=== PATIENT | female | born 1995 | race Caucasian/White ===

== ENCOUNTER 2016-10-14 15:25 | Emergency (ER) | payer MEDICAID ==
[~2016-10-14] VITALS: Ht 170.2 cm; Wt 65.8 kg
[2016-10-14 15:30] VITALS: BP 120/81; PULSE 84; RESP 16; TEMP 97.4; O2SAT 100
[2016-10-14] MEDS ORDERED: ONDANSETRON HCL 4 MG/2 ML VIAL IVP ONE (15:45)
[2016-10-14] MEDS ORDERED: NACL 0.9% 1,000 ML IV ONE (15:45)
[2016-10-14 16:23] LABS: BILIRUBIN,URINE NEGATIVE (NEGATIVE); BLOOD, URINE 3+ (NEGATIVE); CLARITY/URINE CLEAR (CLEAR); COLOR,URINE YELLOW (YELLOW); GLUCOSE,URINE NEGATIVE (NEGATIVE); KETONES,URINE NEGATIVE (NEGATIVE); LEUKOCYTE ESTERASE ,URINE NEGATIVE (NEGATIVE); NITRITE, URINE NEGATIVE (NEGATIVE); PH,URINE 8.5 (5.0-8.0); PROTEIN URINE 1+ (NEGATIVE)
[2016-10-14 16:27] LABS: BASOPHILS % (AUTO) 0.2 % (0.0-2.0); EOSINOPHILS % (AUTO) 0.2 % (0.0-4.0); LYMPHOCYTES % (AUTO) 7.1 % (20.5-51.5); MEAN CORPUSCULAR HEMOGLOBIN 30 pg (27-31); MEAN CORPUSCULAR HGB CONC 34 % (32-36); MEAN CORPUSCULAR VOLUME 88 fL (79.0-98.0); MONOCYTES # (AUTO) 0.7 K/uL (0.0-1.0); MONOCYTES % (AUTO) 4.9 % (1.7-9.3); NEUTROPHILS # (AUTO) 12.5 K/uL (1.8-7.7); PLATELET COUNT (AUTO) 263 K/uL (130-430); RED BLOOD CELL COUNT(AUTO) 4.64 MIL/uL (4.2-6.2); RED CELL DISTRIBUTION WIDTH 11.9 % (9.0-15.0); WHITE BLOOD COUNT (AUTO) 14.2 K/uL (4.8-10.8)
[2016-10-14 16:36] LABS: CALCIUM 8.7 mg/dL (8.4-11.0); CREATININE 0.83 mg/dL (0.55-1.30); POTASSIUM 3.6 mmol/L (3.5-5.1)
[2016-10-14 16:37] LABS: BARBITURATE, URINE NEGATIVE (NEG <=200); BENZODIAZEPINE, URINE NEGATIVE (NEG <=150); CANNABINOID, URINE NEGATIVE (NEG <=50); COCAINE, URINE NEGATIVE (NEG <=150); METHAMPHETAMINES SCREEN,URINE NEGATIVE (NEG <=500); OPIATE, URINE NEGATIVE (NEG <=100); PHENCYCLIDINE SCREEN,URINE NEGATIVE (NEG <=25); UR TRICYCLIC ANTIDEPRESSANTS NEGATIVE (NEG <=300); URINE AMPHETAMINE NEGATIVE (NEG <=500); URINE METHADONE NEGATIVE (NEG <=200); URINE OXYCODONE SCREEN NEGATIVE (NEG <=100); URINE PROPOXYPHENE SCREEN NEGATIVE (NEG <=300)
[2016-10-14 16:41] LABS: BACTERIA,URINE FEW /HPF (None Seen); MUCUS,URINE 1+ /LPF (None Seen)
[2016-10-14 16:51] LABS: ALBUMIN 4.3 g/dL (3.4-4.8); TOTAL BILIRUBIN 0.5 mg/dL (0.0-1.0); TOTAL PROTEIN, SERUM 7.9 g/dL (6.4-8.3)
[2016-10-14 16:56] LABS: NEUTROPHILS % (AUTO) 87.6 % (40.0-70.0)
[2016-10-14] MEDS ORDERED: PROCHLORPERAZINE EDISYLATE 10 MG/2 ML VIAL IVP ONE (17:15)
[2016-10-14 17:20] VITALS: BP 120/81; PULSE 84; RESP 16; TEMP 97.4; O2SAT 100
== END 2016-10-14 17:20 | disposition home or self-care (01) ==
LOC: SED 15:25
DX: K29.70 Gastritis, unspecified, without bleeding (principal); F41.9 Anxiety disorder, unspecified; F17.210 Nicotine dependence, cigarettes, uncomplicated
CPT/HCPCS: 36415; 80053; 80307; 81000; 81025; 83690; 84443; 85025; 93005; 96361; 96374; 96375; 99285; J0780; J2405; J7030

== ENCOUNTER 2017-09-03 11:15 | Emergency (ER) | payer MEDICAID ==
[~2017-09-03] VITALS: Ht 170.2 cm; Wt 78.5 kg
[2017-09-03 11:20] VITALS: BP_SYST 102
[2017-09-03 11:46] LABS: BILIRUBIN,URINE 1+ (NEGATIVE); BLOOD, URINE 3+ (NEGATIVE); CLARITY/URINE SL HAZY (CLEAR); COLOR,URINE YELLOW (YELLOW); GLUCOSE,URINE NEGATIVE (NEGATIVE); KETONES,URINE NEGATIVE (NEGATIVE); LEUKOCYTE ESTERASE ,URINE TRACE (NEGATIVE); NITRITE, URINE NEGATIVE (NEGATIVE); PH,URINE 7.5 (5.0-8.0); PROTEIN URINE TRACE (NEGATIVE); UROBILINOGEN,URINE 0.2 (0.2-1.0)
[2017-09-03 11:48] LABS: BASOPHILS % (AUTO) 0.4 % (0.0-2.0); EOSINOPHILS # (AUTO) 0.1 K/uL (0.0-0.4); HEMATOCRIT 42.9 % (36-48); HEMOGLOBIN 14.3 g/dL (12.0-16.0); LYMPHOCYTES # (AUTO) 1.7 K/uL (1.0-5.5); LYMPHOCYTES % (AUTO) 21.4 % (20.5-51.5); MEAN CORPUSCULAR HEMOGLOBIN 30 pg (27-31); MEAN CORPUSCULAR HGB CONC 33 % (32-36); MEAN CORPUSCULAR VOLUME 89 fL (79.0-98.0); MONOCYTES # (AUTO) 0.6 K/uL (0.0-1.0); MONOCYTES % (AUTO) 7.4 % (1.7-9.3); NEUTROPHILS # (AUTO) 5.4 K/uL (1.8-7.7); NEUTROPHILS % (AUTO) 69.8 % (40.0-70.0); PLATELET COUNT (AUTO) 266 K/uL (130-430); RED BLOOD CELL COUNT(AUTO) 4.85 MIL/uL (4.2-6.2); RED CELL DISTRIBUTION WIDTH 12.4 % (9.0-15.0); WHITE BLOOD COUNT (AUTO) 7.8 K/uL (4.8-10.8)
[2017-09-03 11:53] LABS: CALCIUM 9.3 mg/dL (8.4-11.0); CREATININE 0.55 mg/dL (0.55-1.30); POTASSIUM 3.6 mmol/L (3.5-5.1)
[2017-09-03 11:55] LABS: BACTERIA,URINE MODERATE /HPF (None Seen); MUCUS,URINE None Seen /LPF (None Seen); RBC,URINE 0-3 /HPF (0-3); WBC,URINE 0-3 /HPF (0-3); YEAST,URINE Rare /HPF (None Seen)
[2017-09-03 12:21] LABS: ALBUMIN 4.2 g/dL (3.4-4.8); TOTAL BILIRUBIN 0.6 mg/dL (0.0-1.0)
[2017-09-03 12:53] VITALS: BP_SYST 105
== END 2017-09-03 12:51 | disposition home or self-care (01) ==
LOC: SED 11:15
DX: O20.0 Threatened abortion (principal); O23.41 Unspecified infection of urinary tract in pregnancy, first trimester; Z3A.01 Less than 8 weeks gestation of pregnancy
CPT/HCPCS: 36415; 76801; 76817; 80053; 81000-TC; 81025; 84702-TC; 85025; 86900; 86901; 87086; 99285

== ENCOUNTER 2017-11-13 21:46 | Emergency (ER) | payer MEDICAID ==
[~2017-11-13] VITALS: Ht 170.2 cm; Wt 77.1 kg
[2017-11-13 22:01] VITALS: BP_SYST 138
[2017-11-13] MEDS ORDERED: PREN-89 PO (22:07)
[2017-11-13 22:47] LABS: BASOPHILS % (AUTO) 0.4 % (0.0-2.0); EOSINOPHILS # (AUTO) 0.1 K/uL (0.0-0.4); EOSINOPHILS % (AUTO) 0.7 % (0.0-4.0); HEMATOCRIT 36.7 % (36-48); HEMOGLOBIN 12.6 g/dL (12.0-16.0); LYMPHOCYTES # (AUTO) 2.3 K/uL (1.0-5.5); LYMPHOCYTES % (AUTO) 19.8 % (20.5-51.5); MEAN CORPUSCULAR HEMOGLOBIN 31 pg (27-31); MEAN CORPUSCULAR HGB CONC 35 % (32-36); MEAN CORPUSCULAR VOLUME 88 fL (79.0-98.0); MONOCYTES # (AUTO) 0.7 K/uL (0.0-1.0); MONOCYTES % (AUTO) 5.9 % (1.7-9.3); NEUTROPHILS # (AUTO) 8.5 K/uL (1.8-7.7); NEUTROPHILS % (AUTO) 73.2 % (40.0-70.0); PLATELET COUNT (AUTO) 248 K/uL (130-430); RED BLOOD CELL COUNT(AUTO) 4.15 MIL/uL (4.2-6.2); RED CELL DISTRIBUTION WIDTH 12.1 % (9.0-15.0); WHITE BLOOD COUNT (AUTO) 11.6 K/uL (4.8-10.8)
[2017-11-13 23:05] LABS: CALCIUM 8.8 mg/dL (8.4-11.0); CREATININE 0.57 mg/dL (0.55-1.30); POTASSIUM 3.5 mmol/L (3.5-5.1)
[2017-11-13 23:27] LABS: ALBUMIN 3.5 g/dL (3.4-4.8); TOTAL BILIRUBIN 0.3 mg/dL (0.0-1.0)
[2017-11-13 23:38] VITALS: BP_SYST 130
== END 2017-11-13 23:38 | disposition home or self-care (01) ==
LOC: SED 21:46
DX: O20.9 Hemorrhage in early pregnancy, unspecified (principal); Z3A.16 16 weeks gestation of pregnancy
CPT/HCPCS: 36415; 76805-TC; 80053; 84702-TC; 85025; 99285

== ENCOUNTER 2018-03-22 23:40 | Observation (INO) | payer MEDICAID ==
[~2018-03-22] VITALS: Ht 172.7 cm; Wt 86.2 kg
[~2018-03-22 23:40] MED LIST: PREN-89 PO
[2018-03-22 23:50] VITALS: BP_SYST 104
[2018-03-23] VITALS (11 sets, daily range): BP systolic 93–102
[2018-03-23] MEDS ORDERED: NACL 0.9% 1,000 ML IV ONE (00:15)
[2018-03-23] MEDS ORDERED: ACETAMINOPHEN 500 MG TABLET PO ONE (00:15)
[2018-03-23 01:15] LABS: CALCIUM 8.8 mg/dL (8.4-11.0); CREATININE 0.66 mg/dL (0.55-1.30); POTASSIUM 3.7 mmol/L (3.5-5.1)
[2018-03-23] MEDS ORDERED: AMPICILLIN SODIUM 1 GM in NS 50 ML IV ONE (01:15)
[2018-03-23] MEDS ORDERED: GENTAMICIN 100 mg/50 mL NS 50 ML IV ONE (01:15)
[2018-03-23 01:19] LABS: BASOPHILS % (AUTO) 0.4 % (0.0-2.0); EOSINOPHILS # (AUTO) 0.1 K/uL (0.0-0.4); EOSINOPHILS % (AUTO) 0.5 % (0.0-4.0); HEMATOCRIT 32.6 % (36-48); HEMOGLOBIN 10.9 g/dL (12.0-16.0); LYMPHOCYTES # (AUTO) 1.9 K/uL (1.0-5.5); LYMPHOCYTES % (AUTO) 15.2 % (20.5-51.5); MEAN CORPUSCULAR HEMOGLOBIN 30 pg (27-31); MEAN CORPUSCULAR HGB CONC 34 % (32-36); MEAN CORPUSCULAR VOLUME 89 fL (79.0-98.0); MONOCYTES # (AUTO) 0.8 K/uL (0.0-1.0); MONOCYTES % (AUTO) 6.3 % (1.7-9.3); NEUTROPHILS # (AUTO) 9.6 K/uL (1.8-7.7); NEUTROPHILS % (AUTO) 77.6 % (40.0-70.0); PLATELET COUNT (AUTO) 336 K/uL (130-430); RED BLOOD CELL COUNT(AUTO) 3.66 MIL/uL (4.2-6.2); RED CELL DISTRIBUTION WIDTH 12.8 % (9.0-15.0); WHITE BLOOD COUNT (AUTO) 12.4 K/uL (4.8-10.8)
[2018-03-23 01:21] LABS: ALBUMIN 2.5 g/dL (3.4-4.8); TOTAL BILIRUBIN 0.5 mg/dL (0.0-1.0)
[2018-03-23] MEDS ORDERED: AMPICILLIN SODIUM 1 GM VIAL ONE (01:25)
[2018-03-23 01:29] LABS: BILIRUBIN,URINE NEGATIVE (NEGATIVE); BLOOD, URINE 3+ (NEGATIVE); CLARITY/URINE SL CLOUDY (CLEAR); COLOR,URINE YELLOW (YELLOW); GLUCOSE,URINE NEGATIVE (NEGATIVE); KETONES,URINE NEGATIVE (NEGATIVE); LEUKOCYTE ESTERASE ,URINE 3+ (NEGATIVE); NITRITE, URINE NEGATIVE (NEGATIVE); PH,URINE 5.5 (5.0-8.0); PROTEIN URINE TRACE (NEGATIVE); UROBILINOGEN,URINE 0.2 (0.2-1.0)
[2018-03-23 01:38] LABS: INR 0.9 (0.8-1.2); PROTHROMBIN TIME 9.2 SECS (9.5-12.5)
[2018-03-23 01:53] LABS: BACTERIA,URINE MANY /HPF (None Seen); MUCUS,URINE 1+ /LPF (None Seen); RBC,URINE 20-50 /HPF (0-3); WBC,URINE 50-80 /HPF (0-3)
[2018-03-23] MEDS ORDERED: OXYTOCIN 10 UNIT/ML VIAL ONE (02:34)
[2018-03-23] MEDS ORDERED: GENTAMICIN 120 mg/100 mL NS 100 ML IV ONE (02:38)
[2018-03-23] MEDS ORDERED: AMPICILLIN SODIUM 2 GM VIAL ONE (02:44)
[2018-03-23] MEDS: D5 IV SCH ×2 (03:00→14:35)
[2018-03-23] MEDS ORDERED: AMPICILLIN SODIUM 2 GM in NS 100 ML IV SCH ×2 (03:00→18:00)
[2018-03-23] MEDS: [UNRECOGNIZED DRUG - OTHER] IV SCH ×2 (03:00→14:35)
[2018-03-23] MEDS: OXYTOCIN IV SCH ×2 (03:00→14:35)
[2018-03-23] MEDS ORDERED: GENTAMICIN 120 mg/ NS 100 mL IVPB IV SCH ×2 (03:00→07:30)
[2018-03-23] MEDS: AMPICILLIN SODIUM 2 GM in NS 100 ML IV SCH ×2 (06:00→11:16)
[2018-03-23] MEDS ORDERED: GENTAMICIN SULFATE 200 MG in NS 100 ML IV SCH (14:00)
[2018-03-23] MEDS ORDERED: KETOROLAC TROMETHAMINE 30 MG VIAL IVP ONE (14:15)
[2018-03-23] MEDS ORDERED: LR 1,000 ML IV.SOLN IV ONE (14:15)
[2018-03-23] MEDS ORDERED: fentaNYL CITRATE/PF 100 MCG/2 ML AMP IVP ONE (14:15)
[2018-03-23] MEDS ORDERED: OXYTOCIN 10 UNIT/ML VIAL IV ONE (14:15)
[2018-03-23] MEDS ORDERED: SEVOFLURANE 15 MIN GAS INH ONE (14:15)
[2018-03-23] MEDS ORDERED: MIDAZOLAM HCL 5 MG/5 ML VIAL IVP ONE (14:15)
[2018-03-23] MEDS ORDERED: ONDANSETRON HCL 4 MG/2 ML VIAL IVP ONE (14:15)
[2018-03-23] MEDS ORDERED: LR 1,000 ML IV SCH (15:02)
[2018-03-23] MEDS ORDERED: OXYTOCIN/0.9 % SODIUM CHLORIDE 1,000 ML IV SCH (15:15)
[2018-03-23] MEDS ORDERED: ONDANSETRON HCL 4 MG/2 ML VIAL IVP PRN (15:15)
[2018-03-23] MEDS ORDERED: MORPHINE 4 MG/ML INJ. SYRINGE IVP PRN ×3 (15:15)
[2018-03-23] MEDS ORDERED: METOCLOPRAMIDE HCL 10 MG/2 ML VIAL IVP PRN (15:15)
[2018-03-23] MEDS ORDERED: HYDROcodone/ACETAMIN 5-325 MG TAB (NORCO/ VICODIN) PO PRN (15:15)
[2018-03-23] MEDS ORDERED: AMOX-423 PO (16:23)
== END 2018-03-23 21:20 | disposition home or self-care (01) ==
LOC: SED 23:40 → UNDOADMIN 03-23 01:12 → SMU 03-23 01:12 → INTOOBSV 03-23 01:40 → SMU 03-23 01:53
PROVIDERS: ADMIT Specialist; ATTEND Specialist
DX: O72.1 Other immediate postpartum hemorrhage (principal); O86.12 Endometritis following delivery
CPT/HCPCS: 36415; 58555; 59160; 76801; 76817; 80053; 81000; 83605; 84702; 85025; 85610; 85730; 86900; 86901; 87040; 87081; 87086; 88305; 96365; 96366; 96368; 99285; G0378; J0290 ×2; J1580 ×3; J1885; J2250; J2405; J2590; J3010; J7120; 96361; 96367

== ENCOUNTER 2021-01-20 18:57 | Emergency (ER) | payer MEDICAID ==
[~2021-01-20] VITALS: Ht 160 cm; Wt 86.2 kg
[~2021-01-20 18:57] MED LIST changes: +AMOX-423 PO
--- NOTE | 2021-01-20 19:10 | NUR ---
PIYUSH AND PLACED IN THE WAITING ROOM
--- NOTE | 2021-01-20 19:12 | NUR ---
PT ARRIVES FROM HOME W/ C/O SOB. PT'S O2 SAT IS 100% ON RA AND IS SPEAKING IN COMPLETE SENTENCES
--- NOTE | 2021-01-20 19:15 | NUR ---
ER at bedside examining patient.
--- NOTE | 2021-01-20 19:20 | NUR ---
Patient given written and verbal discharge instructions and verbalizes understanding. ER MD discussed with patient the results and treatment provided. Patient in stable condition. ID arm band removed. Patient educated on pain management and to follow up with PMD. Pain Scale 0/10. Opportunity for questions provided and answered. Medication side effect fact sheet provided.
[2021-01-20 19:21] VITALS: BP_SYST 135
[2021-01-20 19:31] VITALS: BP_SYST 135
== END 2021-01-20 19:31 | disposition home or self-care (01) ==
LOC: SED 18:57
DX: R06.4 Hyperventilation (principal); F41.9 Anxiety disorder, unspecified; Z79.899 Other long term (current) drug therapy
CPT/HCPCS: 99281

== ENCOUNTER 2021-02-06 00:06 | Emergency (ER) | payer MEDICAID ==
[~2021-02-06] VITALS: Ht 170.2 cm; Wt 90.7 kg
[2021-02-06 00:11] VITALS: BP_SYST 134
--- NOTE | 2021-02-06 01:18 | NUR ---
Patient to ER bed 1 to gown for evaluation. Side rails up. Report given to benton.
--- NOTE | 2021-02-06 01:19 | NUR ---
Came in ER ambulatory from home this 25 year old female, AAOX4, breathing spontaneously at room air, not in distress noted. With chief complaints right facial numbness for 3 days, second visit in ER with same complained. No knon medical/surgical history. Vital signs stable.
--- NOTE | 2021-02-06 01:27 | NUR ---
Urine HCG done, results Neg GTIN: [id number] Lot [id number] Exp: 2022-07-29
--- NOTE | 2021-02-06 02:26 | NUR ---
ER Dr. Yenny KING at bedside examining patient.
[2021-02-06] MEDS ORDERED: NACL 0.9% 1,000 ML IV ONE (02:45)
--- NOTE | 2021-02-06 02:55 | NUR ---
# 20 gauge angiocath placed to left hand. Use of asceptic technique. Opsite placed over site. Blood return noted. Blood for lab drawn from site. Flushed with 10 cc of normal saline. No evidence of infiltration noted. Patient tolerated well.
--- NOTE | 2021-02-06 03:10 | NUR ---
Patient transported to radiology via wheelchair in stable condition, accompanied by head of academic technology.
[2021-02-06 03:11] LABS: BARBITURATE, URINE NEGATIVE (NEG <=200); BENZODIAZEPINE, URINE NEGATIVE (NEG <=150); CANNABINOID, URINE NEGATIVE (NEG <=50); COCAINE, URINE NEGATIVE (NEG <=150); METHAMPHETAMINES SCREEN,URINE NEGATIVE (NEG <=500); OPIATE, URINE NEGATIVE (NEG <=100); PHENCYCLIDINE SCREEN,URINE NEGATIVE (NEG <=25); UR TRICYCLIC ANTIDEPRESSANTS NEGATIVE (NEG <=300); URINE AMPHETAMINE NEGATIVE (NEG <=500); URINE METHADONE NEGATIVE (NEG <=200); URINE OXYCODONE SCREEN NEGATIVE (NEG <=100); URINE PROPOXYPHENE SCREEN NEGATIVE (NEG <=300)
--- NOTE | 2021-02-06 03:25 | NUR ---
Returned from radiology, back to [facility], kept comfortable
[2021-02-06 03:41] LABS: CALCIUM 8.8 mg/dL (8.4-11.0); CREATININE 0.76 mg/dL (0.55-1.30); POTASSIUM 3.9 mmol/L (3.5-5.1)
[2021-02-06 03:46] LABS: ALBUMIN 3.9 g/dL (3.4-4.8); TOTAL BILIRUBIN 0.4 mg/dL (0.0-1.0)
[2021-02-06 03:56] LABS: BASOPHILS % (AUTO) 0.4 % (0.0-2.0); EOSINOPHILS # (AUTO) 0.2 K/uL (0.0-0.4); EOSINOPHILS % (AUTO) 1.3 % (0.0-4.0); HEMATOCRIT 41.2 % (36-48); HEMOGLOBIN 14.3 g/dL (12.0-16.0); LYMPHOCYTES # (AUTO) 3.1 K/uL (1.0-5.5); LYMPHOCYTES % (AUTO) 24.8 % (20.5-51.5); MEAN CORPUSCULAR HEMOGLOBIN 31 pg (27-31); MEAN CORPUSCULAR HGB CONC 35 % (32-36); MEAN CORPUSCULAR VOLUME 88 fL (79.0-98.0); MONOCYTES # (AUTO) 0.8 K/uL (0.0-1.0); MONOCYTES % (AUTO) 6.6 % (1.7-9.3); NEUTROPHILS # (AUTO) 8.3 K/uL (1.8-7.7); NEUTROPHILS % (AUTO) 66.9 % (40.0-70.0); PLATELET COUNT (AUTO) 247 K/uL (130-430); RED BLOOD CELL COUNT(AUTO) 4.68 MIL/uL (4.2-6.2); RED CELL DISTRIBUTION WIDTH 12.9 % (9.0-15.0); WHITE BLOOD COUNT (AUTO) 12.4 K/uL (4.8-10.8)
--- NOTE | 2021-02-06 05:10 | NUR ---
Ambulatory to restroom, voided freely as claimed
--- NOTE | 2021-02-06 06:40 | NUR ---
Headache 11/08, Medications given as ordered, health teaching provided and verbalized understanding
[2021-02-06] MEDS ORDERED: fentaNYL CITRATE/PF 100 MCG/2 ML AMP ONE (06:42)
[2021-02-06] MEDS ORDERED: ONDANSETRON HCL 4 MG/2 ML VIAL ONE (06:42)
[2021-02-06] MEDS ORDERED: fentaNYL CITRATE/PF 100 MCG/2 ML AMP IVP ONE (06:45)
[2021-02-06] MEDS ORDERED: ONDANSETRON HCL 4 MG/2 ML VIAL IVP ONE (06:45)
--- NOTE | 2021-02-06 07:17 | NUR ---
Endorsed to ELOY Zapata in stable condition for cotinuity of care
--- NOTE | 2021-02-06 07:29 | NUR ---
AAO,CLEAR MENTATION AND SPEECH, SKIN WARM AND DRY. COMMUNICATES CLEARLY IN FULL COMPLETE SENTENCES. NO DISTRESS
--- NOTE | 2021-02-06 08:10 | NUR ---
OFF TO CT VIA WHEELCHAIR, PT CALM, ALERT, STEADY GAIT
--- NOTE | 2021-02-06 08:23 | NUR ---
PLACED IN BED ONE, NO CHANGE IN MENTATION, TOLERATED CT WELL
--- NOTE | 2021-02-06 09:02 | NUR ---
DR GARCIA AT BEDSIDE
[2021-02-06 09:25] VITALS: BP_SYST 115
--- NOTE | 2021-02-06 09:26 | NUR ---
Patient given written and verbal discharge instructions and verbalizes understanding. ER MD discussed with patient the results and treatment provided. Patient in stable condition. ID arm band removed. IV catheter removed intact and dressing applied, no active bleeding. Patient educated on pain management and to follow up with PMD. Pain Scale 0/10 Opportunity for questions provided and answered. Medication side effect fact sheet provided.
--- NOTE | 2021-02-06 09:42 | NUR ---
Spoke to Triston Trujillo, updated that pt was discharged home and will no longer need to be on will call to transfer.
--- NOTE | 2021-02-13 11:08 | NUR ---
Received call from jakob Hoffman gave updated info to jakob Dawson # [phone]. The pt was dc from ED on 02/06/21.
== END 2021-02-06 09:26 | disposition home or self-care (01) ==
LOC: SED 00:06
DX: G83.84 Todd's paralysis (postepileptic) (principal); J44.9 Chronic obstructive pulmonary disease, unspecified; Z79.899 Other long term (current) drug therapy
CPT/HCPCS: 36415; 70450; 76376; 80053; 80307; 83735; 85025; 93005; 96361; 96374; 96375; 99285; J2405; J3010; J7030

== ENCOUNTER 2022-09-14 16:49 | Emergency (ER) | payer MEDICAID ==
[~2022-09-14] VITALS: Ht 170.2 cm; Wt 86.2 kg
[2022-09-14 16:54] VITALS: BP_SYST 134
[2022-09-14] MEDS ORDERED: CEPH-548 PO (17:28)
[2022-09-14] MEDS ORDERED: IBUP-1971 PO (17:28)
[2022-09-14] MEDS ORDERED: IBUPROFEN 800 MG TABLET PO ONE (17:30)
[2022-09-14 17:39] VITALS: BP_SYST 134
== END 2022-09-14 17:38 | disposition home or self-care (01) ==
LOC: SED 16:49
DX: H66.92 Otitis media, unspecified, left ear (principal); H92.02 Otalgia, left ear; Z79.899 Other long term (current) drug therapy
CPT/HCPCS: 99283

== ENCOUNTER 2023-05-18 15:58 | Emergency (ER) | payer SELFPAY ==
[~2023-05-18] VITALS: Ht 170.2 cm; Wt 84.8 kg
[~2023-05-18 15:58] MED LIST changes: +CEPH-548 PO; +IBUP-1971 PO
[2023-05-18 16:28] VITALS: BP_SYST 127; PULSE 99; RESP 20; TEMP 99; O2SAT 100
[2023-05-18] MEDS ORDERED: ACETAMINOPHEN 325 MG TABLET PO ONE (17:45)
[2023-05-18] MEDS ORDERED: KETOROLAC TROMETHAMINE 15 MG VIAL IM ONE (17:45)
[2023-05-18 17:54] LABS: BILIRUBIN,URINE NEGATIVE (NEGATIVE); BLOOD, URINE 3+ (NEGATIVE); CLARITY/URINE CLEAR (CLEAR); COLOR,URINE YELLOW (YELLOW); GLUCOSE,URINE NEGATIVE (NEGATIVE); KETONES,URINE NEGATIVE (NEGATIVE); LEUKOCYTE ESTERASE ,URINE NEGATIVE (NEGATIVE); NITRITE, URINE NEGATIVE (NEGATIVE); PROTEIN URINE NEGATIVE (NEGATIVE); UROBILINOGEN,URINE 0.2 (0.2-1.0)
[2023-05-18 18:05] LABS: BACTERIA,URINE RARE /HPF (None Seen); RBC,URINE 0-3 /HPF (0-3); WBC,URINE 0-3 /HPF (0-3)
[2023-05-18 18:06] LABS: MUCUS,URINE None Seen /LPF (None Seen)
[2023-05-18 18:18] LABS: BASOPHILS % (AUTO) 0.5 % (0.0-2.0); EOSINOPHILS # (AUTO) 0.1 K/uL (0.0-0.4); HEMATOCRIT 41.8 % (36-48); HEMOGLOBIN 14.1 g/dL (12.0-16.0); LYMPHOCYTES # (AUTO) 2.5 K/uL (1.0-5.5); LYMPHOCYTES % (AUTO) 30.4 % (20.5-51.5); MEAN CORPUSCULAR HEMOGLOBIN 30 pg (27-31); MEAN CORPUSCULAR HGB CONC 34 % (32-36); MEAN CORPUSCULAR VOLUME 90 fL (79.0-98.0); MONOCYTES # (AUTO) 0.6 K/uL (0.0-1.0); MONOCYTES % (AUTO) 7.4 % (1.7-9.3); NEUTROPHILS % (AUTO) 60.7 % (40.0-70.0); PLATELET COUNT (AUTO) 307 K/uL (130-430); RED BLOOD CELL COUNT(AUTO) 4.67 MIL/uL (4.2-6.2); RED CELL DISTRIBUTION WIDTH 12.7 % (9.0-15.0); WHITE BLOOD COUNT (AUTO) 8.2 K/uL (4.8-10.8)
[2023-05-18 18:35] LABS: ALANINE AMINOTRANSFERASE 26 U/L (12-78); ALBUMIN 3.8 g/dL (3.4-4.8); ANION GAP 9 (5-15); ASPARTATE AMINOTRANSFERASE 22 U/L (10-37); CALCIUM 8.1 mg/dL (8.4-11.0); CARBON DIOXIDE 27 mmol/L (23-29); CHLORIDE 104 mmol/L (98-107); GFR AFRICAN AMERICAN 129 mL/min (>90); GFR NON AFRICAN-AMERICAN 107 mL/min (>90); GLUCOSE 106 mg/dL (74-106); POTASSIUM 3.8 mmol/L (3.5-5.1); SODIUM SERUM 140 mmol/L (136-145); TOTAL BILIRUBIN 0.4 mg/dL (0.0-1.0); TOTAL PROTEIN, SERUM 7.7 g/dL (6.4-8.3); UREA NITROGEN, BLOOD 11 mg/dL (8-21)
[2023-05-18 18:38] LABS: BILIRUBIN,DIRECT 0.1 mg/dL (0.0-0.3)
[2023-05-18] MEDS ORDERED: METH-634 PO (19:01)
[2023-05-18] MEDS ORDERED: IBUP-1969 PO (19:01)
[2023-05-18 19:26] VITALS: RESP 20; TEMP 99; O2SAT 100
== END 2023-05-18 19:26 | disposition home or self-care (01) ==
LOC: SED 15:58
DX: R07.9 Chest pain, unspecified (principal); M54.6 Pain in thoracic spine; R10.10 Upper abdominal pain, unspecified; J44.9 Chronic obstructive pulmonary disease, unspecified; Z79.899 Other long term (current) drug therapy
CPT/HCPCS: 99285; 71045; 80076; 80048; 81001; 85025; 84484; 36415; 93005; 81025; 96372; 81000; 81015; J1885